=== PATIENT | male | born 1995 | race Caucasian/White ===

== ENCOUNTER 2017-01-14 11:51 | Emergency (ER) | payer SELFPAY ==
--- NOTE | 2017-01-14 12:35 | ER Document Report ---
ED Medical Screen (RME) - General Chief Complaint: Rectal Bleeding Stated Complaint: ANAL BLEEDING Time seen by provider: 12:34 Mode of Arrival: Ambulatory Information source: Patient TRAVEL OUTSIDE OF THE [place] IN LAST 30 DAYS: No - HPI Patient complains to provider of: bright red blood per rectum without BM Onset: Last week Onset/Duration: Waxing and waning Quality of pain: Other - stinging Severity: Moderate Pain Level: 3 Associated Symptoms: Abdominal pain, Nausea. denies: Diarrhea, Fever, Vomiting Exacerbated by: Denies Relieved by: Denies Similar symptoms previously: Yes Recently seen / treated by doctor: No Notes: 01/14/17 12:35 Patient is a 21-year-old male presents to the emergency room complaining of bright red blood per rectum that's been going on over the past week, reports rectal stinging pain is well, he is a history of internal and external hemorrhoids with bleeding in the past, however the bleeding has been quite severe this time, lasting approximate 45 minutes on Friday, and this was not preceded by a bowel movement, patient denies any rectal trauma - Related Data Allergies/Adverse Reactions: No Known Allergies Allergy (Verified 01/14/17 12:04) Past Medical History Neurological Medical History: Reports: Hx Migraine Endocrine Medical History: Reports: Hx Hypothyroidism Renal/ Medical History: Denies: Hx Peritoneal Dialysis Past Surgical History: Reports: Hx Cholecystectomy Physical Exam - Vital signs Vitals: Temp Pulse Resp BP Pulse Ox 98.5 F 88 18 142/92 H 97 01/14/17 12:01 01/14/17 12:01 01/14/17 12:01 01/14/17 12:01 01/14/17 12:01 Course - Vital Signs Vital signs: Temp Pulse Resp BP Pulse Ox 98.5 F 88 18 142/92 H 97 01/14/17 12:01 01/14/17 12:01 01/14/17 12:01 01/14/17 12:01 01/14/17 12:01
[2017-01-14 13:08] LABS: ABSOLUTE EOSINOPHILS # (AUTO) 0.1 10^3/uL (0.0-0.6); ABSOLUTE LYMPHOCYTES (AUTO) 2.2 10^3/uL (0.5-4.7); ABSOLUTE MONOCYTES (AUTO) 0.4 10^3/uL (0.1-1.4); ABSOLUTE NEUT (AUTO) 3.6 10^3/uL (1.7-8.2); BASOPHILS % (AUTO) 0.5 % (0-2); EOSINOPHILS % (AUTO) 1.4 % (0-6); HEMATOCRIT 47.8 % (37.9-51.0); HEMOGLOBIN 16.1 g/dL (13.5-17.0); HGB HCT DIFFERENCE 0.5; LYMPHOCYTES % (AUTO) 34.3 % (13-45); MEAN CORPUSCULAR HEMOGLOBIN 28.1 pg (27.0-33.4); MEAN CORPUSCULAR HGB CONC 33.7 g/dL (32.0-36.0); MEAN CORPUSCULAR VOLUME 83 fl (80-97); MONOCYTES % (AUTO) 5.7 % (3-13); RED BLOOD COUNT 5.73 10^6/uL (4.35-5.55); RED CELL DISTRIBUTION WIDTH 13.8 % (11.5-14.0); SEGMENTED NEUTROPHILS % (AUTO) 58.1 % (42-78); WHITE BLOOD COUNT 6.3 10^3/uL (4.0-10.5)
[2017-01-14 13:32] LABS: ALANINE AMINOTRANSFERASE 70 U/L (21-72); ALKALINE PHOSPHATASE 69 U/L (38-126); ANION GAP 16 (5-19); ASPARTATE AMINO TRANSFERASE 35 U/L (17-59); BILIRUBIN,DIRECT 0.4 mg/dL (0.0-0.4); BILIRUBIN,TOTAL 0.6 mg/dL (0.2-1.3); BLOOD UREA NITROGEN 14 mg/dL (7-20); CALCIUM 10.1 mg/dL (8.4-10.2); CARBON DIOXIDE 21 mmol/L (22-30); CHLORIDE 112 mmol/L (98-107); CREATININE RESULT 0.95 mg/dL (0.52-1.25); GLUCOSE 98 mg/dL (75-110); POTASSIUM 4.3 mmol/L (3.6-5.0); SODIUM 149.3 mmol/L (137-145)
[2017-01-14 13:46] LABS: PARTIAL THROMBOPLASTIN TIME 25.3 SEC (23.5-35.8); PROTHROMBIN TIME 12.7 SEC (11.4-15.4)
[2017-01-14] MEDS ORDERED: HYDROCORTISONE ACETATE 25 MG SUPP.RECT PR ONE (15:39)
--- NOTE | 2017-01-14 15:43 | ER Document Report ---
ED GI Bleed / Rectal Pain - General Chief Complaint: Rectal Bleeding Stated Complaint: ANAL BLEEDING Mode of Arrival: Ambulatory Information source: Patient TRAVEL OUTSIDE OF THE [place] IN LAST 30 DAYS: No - HPI Patient complains to provider of: Bright red bld from rect., Hemorrhoids, Rectal pain - Related Data Allergies/Adverse Reactions: No Known Allergies Allergy (Verified 01/14/17 12:04) Past Medical History - General Information source: Patient - Social History Smoking Status: Former Smoker Cigarette use (# per day): No Chew tobacco use (# tins/day): No Smoking Education Provided: No Frequency of alcohol use: None Drug Abuse: None Family History: Reviewed & Not Pertinent Patient has suicidal ideation: No Patient has homicidal ideation: No Neurological Medical History: Reports: Hx Migraine Endocrine Medical History: Reports: Hx Hypothyroidism Renal/ Medical History: Denies: Hx Peritoneal Dialysis Past Surgical History: Reports: Hx Cholecystectomy Physical Exam - Vital signs Vitals: Temp Pulse Resp BP Pulse Ox 98.5 F 88 18 142/92 H 97 01/14/17 12:01 01/14/17 12:01 01/14/17 12:01 01/14/17 12:01 01/14/17 12:01 Interpretation: Normal - General General appearance: Appears well, Alert - HEENT Head: Normocephalic, Atraumatic Eyes: Normal Pupils: PERRL - Respiratory Respiratory status: No respiratory distress Chest status: Nontender Breath sounds: Normal Chest palpation: Normal - Cardiovascular Rhythm: Regular Heart sounds: Normal auscultation Murmur: No - Abdominal Inspection: Normal Distension: No distension Bowel sounds: Normal Tenderness: Nontender Organomegaly: No organomegaly - Rectal Tenderness: Yes Stool: Heme positive, Bloody Hemorrhoids: External - Back Back: Normal, Nontender - Extremities General upper extremity: Normal inspection, Nontender, Normal color, Normal ROM , Normal temperature General lower extremity: Normal inspection, Nontender, Normal color, Normal ROM , Normal temperature, Normal weight bearing. No: Carmen's sign - Neurological Neuro grossly intact: Yes Cognition: Normal Orientation: AAOx4 Andrés Coma Scale Eye Opening: Spontaneous [place] Coma Scale Verbal: Oriented [place] Coma Scale Motor: Obeys Commands [place] Coma Scale Total: 15 Speech: Normal Motor strength normal: LUE, RUE, LLE, RLE Sensory: Normal - Psychological Associated symptoms: Normal affect, Normal mood - Skin Skin Temperature: Warm Skin Moisture: Dry Skin Color: Normal Course - Re-evaluation Re-evalutation: 01/14/17 18:[address] Caldera he stated as well as H&H was fine and the hemorrhoid was not thrombosed that the patient could be discharged home on Anusol. Patient was given Anusol in the emergency room and discharged home to follow-up with his primary doctor. - Vital Signs Vital signs: Temp Pulse Resp BP Pulse Ox 98.6 F 85 18 136/90 H 100 01/14/17 16:04 01/14/17 16:04 01/14/17 16:04 01/14/17 16:04 01/14/17 16:04 - Laboratory Result Diagrams: 01/14/17 12:45 01/14/17 12:45 Laboratory results interpreted by me: 01/14/17 01/14/17 12:45 12:45 RBC 5.73 H Sodium 149.3 H Chloride 112 H Carbon Dioxide 21 L Discharge - Discharge Clinical Impression: External hemorrhoid, bleeding Condition: Stable Disposition: HOME, SELF-CARE Additional Instructions: Hemorrhoids You have hemorrhoids. These are formed by enlargement of veins around the anus. The cause is increased pressure in the veins, from or straining at bowel movements. Hemorrhoids often cause itching and bleeding with bowel movements. When a hemorrhoid becomes clotted, severe pain and swelling result. Soothing creams and suppositories are often prescribed. Warm sitz-baths may also decrease pain, swelling, and itching. Eat a high-fiber diet. Stool softeners such as Metamucil will help. Keep the area very clean. Medicated cleansing pads (such as Tucks) are useful after bowel movements. A hose-mounted shower unit (like a shower massager at low water pressure) can be used to clean around tender hemorrhoid tags. You should call the doctor or return if you develop fever, increasing pain , or an enlarging mass around the anus, or if you simply fail to improve with treatment. Your labs were discussed with you and a written copy given to you to follow-up with your primary doctor.. Anusol was given to you per rectum for your external hemorrhoid. You were also sent home with a prescription for the Anusol. You were also given instruction for fermin roosevelt and a pad to the bottom as well as warm baths and reduce pressure to the rectum when sitting. Please use stool softeners or laxatives to keep your stool soft until you're hemorrhoid is healed. If you're hemorrhoid becomes hard purple not reducible as it is now he will need to follow-up with a surgeon to have a hemorrhoidectomy. FOLLOW-UP CARE: If you have been referred to a physician for follow-up care, call the physician s office for an appointment as you were instructed or within the next two days. If you experience worsening or a significant change in your symptoms, notify the physician immediately or return to the Emergency Department at any time for re-evaluation. Prescriptions: Starch [Anusol] 1 each RC Q6HP PRN #[id number] supp.rect PRN Reason: Forms: Elevated Blood Pressure Referrals: VANNA DOWNEY MD [Primary Care Provider] - Follow up as needed [facility] [Provider Group] - Follow up as needed HAN JEAN MD [ACTIVE STAFF] - Follow up as needed
[2017-01-14 16:16] VITALS: BP 136/90
== END 2017-01-14 16:10 | disposition home or self-care (01) ==
LOC: ER 11:51
DX: K64.4 Residual hemorrhoidal skin tags (principal); Z87.891 Personal history of nicotine dependence
CPT/HCPCS: 36415; 80053; 85025; 85610; 85730; 99283